=== PATIENT | female | born 1980 | race Caucasian/White ===

== ENCOUNTER 2017-06-11 06:52 | Emergency (ER) | payer OTHER ==
[2017-06-11 07:11] LABS: BILIRUBIN 1+ mg/dL (NEGATIVE); BLOOD 3+ Ery/uL (NEGATIVE); CLARITY CLOUDY (CLEAR); COLOR RED (YELLOW); GLUCOSE (U) NORMAL (NORMAL); KETONE (U) TRACE mg/dL (NEGATIVE); LEUKOCYTES NEGATIVE Leu/uL (NEGATIVE); NITRITE POSITIVE (NEGATIVE); PROTEIN 2+ mg/dL (NEGATIVE); SPECIFIC GRAVITY >=1.030 (1.001-1.030)
[2017-06-11 07:14] LABS: BACTERIA 2+; CALCIUM OXALATE CRYSTALS TRACE
[2017-06-11 07:16] LABS: URINARY RBC 20-50
[2017-06-11 07:25] LABS: BASOPHIL 0.2 % (0-2); HCT 38.1 % (37.0-47.0); HGB 12.8 g/dl (12.5-16.0); LYMPHOCYTE 29.2 % (15-48); MCH 32.2 pg (25.0-31.0); MCHC 33.6 g/dL (32.0-36.0); MCV 95.7 fL (78.0-100.0); MONOCYTE 10.8 % (0-12); NEUTROPHIL 56.8 % (41-80); PLT 296 K/uL (150-400); RBC 3.98 M/uL (4.20-5.40); RDW 13.7 % (11.5-14.0); WBC 10.6 K/uL (4.0-10.5)
[2017-06-11 07:49] LABS: BILIRUBIN - TOTAL 0.5 mg/dL (0.1-1.0); CREATININE 0.9 mg/dL (0.5-1.0); GLOBULIN (CALCULATION) 3.2 g/dL (2.2-4.2); PHOSPHORUS 3.7 mg/dL (2.7-4.5); POTASSIUM 3.9 mmol/L (3.5-5.1); TOTAL PROTEIN 7.2 g/dL (6.4-8.3)
== END 2017-06-11 09:15 | disposition home or self-care (01) ==
LOC: FER 06:52
PROVIDERS: Internal Medicine
DX: N20.1 Calculus of ureter (principal); N39.0 Urinary tract infection, site not specified; F17.200 Nicotine dependence, unspecified, uncomplicated; Z87.442 Personal history of urinary calculi; Z98.51 Tubal ligation status; Z90.89 Acquired absence of other organs
CPT/HCPCS: 36415; 80053; 81001; 84100; 85025; 87088; J1885; J2405